=== PATIENT | male | born 1955 | race Caucasian/White ===

== ENCOUNTER → 2019-06-04 15:27 | Outpatient (CLI) | payer OTHER, SELFPAY ==
--- NOTE | 2019-06-04 | XR_ITS ---
PROCEDURE: XR KNEE LT 3V CLINICAL INDICATION: Left knee pain COMPARISON: No exams were available for comparison FINDINGS: No fracture or dislocation. No lytic or blastic change. There is normal mineralization. The joint spaces are well-preserved. No significant degenerative/arthritic changes. No erosive changes evident. Other findings:None. IMPRESSION: No acute findings. Dictated by: Gaurang Zavala MD 06/04/2019 15:58 Electronically signed by Gaurang Zavala MD in [place] 06/04/2019 15:58
--- NOTE | 2019-06-04 | XR_ITS ---
PROCEDURE: XR KNEE RT 3V CLINICAL INDICATION: Right knee pain COMPARISON: No exams were available for comparison FINDINGS: No fracture or dislocation. No lytic or blastic change. There is normal mineralization. The joint spaces are well-preserved. No significant degenerative/arthritic changes. No erosive changes evident. Other findings:None. IMPRESSION: No acute findings. Dictated by: Gaurang Zavala MD 06/04/2019 15:57 Electronically signed by Gaurang Zavala MD in [place] 06/04/2019 15:57
== END ==
PROVIDERS: PCP Family Medicine; Visit Provider Family Medicine
DX: M17.12 Unilateral primary osteoarthritis, left knee (principal); M17.11 Unilateral primary osteoarthritis, right knee
CPT/HCPCS: 73562

== ENCOUNTER 2020-02-11 11:14 | Emergency (ER) | payer OTHER, SELFPAY ==
[2020-02-11 11:35] VITALS: BP 125/83; PULSE 75; RESP 19; TEMP 36.6; O2SAT 99; BMI 27.0
--- NOTE | 2020-02-11 12:10 | HMH.EDUTC ---
[facility] [place] Disposition Clinical Impression: Exposure to COVID-19 virus Disposition: Home, Self-Care Condition on Discharge: Good Instructions: DI for COVID-19 (Suspected or Confirmed ), Coronavirus Disease 2019, Preventing the Spread of Coronavirus Discharge Instructions, DI for Nausea -- Adult, Diarrhea Additional Instructions: *Monitor Temp, Over the counter Motrin or Tylenol as directed/as needed Tylenol every 4 hours and Motrin every 6 hours (as long as your family doctor has told you that you can take it) for fever or pain. and straight to ER if unable to lower temp less than 101.0 after medication given *Warm salt water gargles may help to soothe the throat *Throat Lozenges *Warm fluids like tea with honey may help to soothe the throat *Sleep elevated *Humidifier/Vaporizer Follow up IMMEDIATELY for new or worsening symptoms or no Noticeable improvement over the next 48-72 hours. 911 for difficulty breathing or swallowing You were tested for today for COVID19 your test result should be back in the next 24-48 hours, you may call to the [facility] to see if your test results are back in the next 48 hours [phone] [facility] hours are 9am-9pm You was given a handout with instructions for Self Quarantine and Self isolation for while you wait on test results and what to do if they are positive If you are positive the Health Dept will be contacting you also Prescriptions: Ondansetron [Zofran 4mg ODT] 4 mg PO TIDP PRN #12 tab PRN Reason: Nausea Transmission Status: Pending to [facility] Referrals: Tony Reich [Primary Care Provider] - As needed Forms: Work/School Release Time of Disposition: 12:14 Medical Decision Making - David Inquiry Pt receiving controlled substance: No David was queried for this patient: No Vital Signs: 02/11/20 11:35 Temperature 97.8 F Temperature Source Oral Pulse Rate [Right Brachial] 75 Respiratory Rate 19 Blood Pressure [Right Arm] 125/83 Blood Pressure Mean [Right Arm] 97 Blood Pressure Source [Right Arm] Automatic Cuff Blood Pressure Position [Right Arm] Sitting 02 Sat by Pulse Oximetry 99 Oxygen Delivery Method Room Air Orders (Tests/Meds): ORDERS Category Date Time Status Covid-19 Nasal PCR ([facility]) Routine Lab 02/11/20 11:17 Ordered [facility] [place] HPI - General Stated complaint: covid test, exposure Time Seen by Provider: 02/11/20 12:10 Mode of Arrival: Ambulatory Source of Information: Patient Limitations: No Limitations Description of Symptoms (Recalled from Triage Doc. by RN): COVID TEST D/T EXPOSURE; C/O HEADACHE, DIARRHEA, ABDOMINAL DISCOMFORT HEENT Symptoms (Recalled from RN notes): No Resp Symptoms (Recalled from RN notes): No Skin Symptoms (Recalled from RN notes): No MS Symptoms (Recalled from RN notes): No Functional Status (Recalled from RN notes): WNL - History of Present Illness Provider Complaint: Patient state that tested positive for COVID over the weekend States that now he has been having upset stomach, nausea and diarrhea along with nasal congestion and headache States that he came in to get tested due to close exposure - Related Data Previous Rx's Medication Instructions Recorded Ondansetron [Zofran 4mg ODT] 4 mg PO TIDP PRN #12 tab 02/11/20 Allergies Allergy/AdvReac Type Severity Reaction Status Date / Time No Known Allergies Allergy Verified 02/11/20 12:10 - Worker's Comp Is this a Worker's Comp case?: No [facility] History - Hepatitis A Screen Drug use history?: No High risk sexual behaviors?: No History of sexually transmitted infection?: No Currently employed?: No Childcare worker?: No Do you have indoor plumbing?: Yes Do you have electricity?: Yes Attestation statement:: This patient has been screened for Hepatitis A risk factors. I have reviewed the patient's past medical history: Yes Laterality Cases: Bilateral: Tonsillectomy - Social History Alcohol Intake: never Occupational Status: other
[2020-02-11 12:18] VITALS: BP 125/83; PULSE 75; RESP 19; TEMP 36.6; O2SAT 99
== END 2020-02-11 12:20 | disposition home or self-care (01) ==
PROVIDERS: Emergency Provider Nurse Practitioner; PCP Family Medicine
DX: Z20.822 Contact with and (suspected) exposure to COVID-19 (principal); R11.0 Nausea; R51.9 Headache, unspecified
CPT/HCPCS: 99202; G0463; U0003

== ENCOUNTER → 2020-04-28 10:53 | Outpatient (CLI) | payer OTHER, SELFPAY ==
--- NOTE | 2020-04-28 10:57 | XR_ITS ---
PROCEDURE: XR FOOT WT BEARING RT 3V CLINICAL INDICATION: pain COMPARISON: No exams were available for comparison FINDINGS: No fracture or dislocation. No lytic or blastic change. There is normal mineralization. The joint spaces are well-preserved. No significant degenerative/arthritic changes. No erosive changes evident. Other findings:None. IMPRESSION: No acute findings. Dictated by: Gaurang Zavala MD 04/28/2020 13:49 Gaurang Zavala MD in [place] 04/28/2020 13:49
--- NOTE | 2020-04-28 10:57 | XR_ITS ---
PROCEDURE: XR FOOT WT BEARING LT 3V CLINICAL INDICATION: pain Left foot pain COMPARISON: No exams were available for comparison FINDINGS: No fracture or dislocation. No lytic or blastic change. There is normal mineralization. The joint spaces are well-preserved. No significant degenerative/arthritic changes. No erosive changes evident. Other findings:None. IMPRESSION: No acute findings. Dictated by: Gaurang Zavala MD 04/28/2020 13:49 Gaurang Zavala MD in [place] 04/28/2020 13:49
== END ==
PROVIDERS: PCP Family Medicine; Visit Provider Nurse Practitioner
DX: M79.672 Pain in left foot (principal); M79.671 Pain in right foot
CPT/HCPCS: 73630

== ENCOUNTER → 2020-12-24 08:03 | Outpatient (CLI) | payer OTHER, SELFPAY | PROVIDERS: PCP Family Medicine; Visit Provider Nurse Practitioner | DX: Z20.822 Contact with and (suspected) exposure to COVID-19 (principal) | CPT/HCPCS: C9803; U0003; U0005 ==

== ENCOUNTER 2022-07-05 22:08 | Emergency (ER) | payer MEDICARE, OTHER, SELFPAY ==
[2022-07-05 22:10] VITALS: BP 173/84; PULSE 101; RESP 21; TEMP 37; O2SAT 93; BMI 27.0
[2022-07-05 22:18] VITALS: BMI 27.0
--- NOTE | 2022-07-05 22:20 | CT_ITS ---
PROCEDURE INFORMATION: Exam: CTA Chest With Contrast Exam date and time: 07/05/2022 11:11 PM Age: 66 years old Clinical indication: Cough and dyspnea; Additional info: SOA TECHNIQUE: Imaging protocol: Computed tomographic angiography of the chest with contrast. Exam focused on the arteries. 3D rendering (Not supervised by radiologist): MIP and/or 3D reconstructed images were created by the technologist. Radiation optimization: All CT scans at this facility use at least one of these dose optimization techniques: automated exposure control; mA and/or kV adjustment per patient size (includes targeted exams where dose is matched to clinical indication); or iterative reconstruction. Contrast material: ISOVUE; Contrast volume: 70 ml; Contrast route: INTRAVENOUS (IV); REPORTING DATA: Count of CT and Cardiac NM exams in prior 12 months: This patient has received 0 known CTs and 0 known cardiac nuclear medicine studies in the 12 months prior to the current study. COMPARISON: CR XR CHEST 2V 07/05/2022 11:07 PM FINDINGS: Pulmonary arteries: No large central pulmonary emboli were identified. Assessment of the small peripheral branches at multiple levels was nondiagnostic due to gross respiratory motion. Aorta: Mild aortic ectasia/tortuosity and calcific atherosclerosis. No aortic aneurysm or dissection. No mediastinal hematoma. Thyroid: The visualized thyroid gland demonstrates no gross abnormality. Lungs: Granulomatous calcifications in the right lung and perihilar distribution. Question mild bilateral bronchial wall thickening suspicious for a mild element of bronchitis or bronchial edema, with no evidence of bronchiectasis or bronchial occlusions. Question mild peripheral reticulonodular densities in the anterior left upper lobe without focal consolidation, with assessment limited by respiratory motion in the region. This could represent early/mild atypical pneumonia or could represent chronic changes of atypical infection and small airways disease. Minimal paraseptal emphysematous changes in the pulmonary apices bilaterally. 4 mm pulmonary nodule in the anterior right middle lobe series 5, image 76 without measurable calcification. For patients at low risk (minimal or absent history of smoking and of other known risk factors), no routine follow-up is indicated. For patients at high risk (history of smoking or of other known risk factors), consider optional CT at 12 months. (Harinder et al., Fleischner Society, 2017). Granulomatous calcification in the spleen. Pleural spaces: No pleural effusion. No pneumothorax. Heart: Heart size normal. No coronary artery calcification. No pericardial effusion. Mediastinal space: The esophagus is largely contracted but demonstrates no gross abnormality. Lymph nodes: No supraclavicular or axillary adenopathy. Enlarged mediastinal nodes in the pretracheal retrocaval and prevascular distributions and borderline enlarged bilateral hilar nodes, nonspecific. Liver: Low-density circumscribed probable cysts in the liver which do not require further evaluation based on current consensus criteria. Bones/joints: No acute osseous abnormalities are identified. Mild thoracic spondylosis. Soft tissues: The soft tissues of the chest wall demonstrate no acute abnormality. IMPRESSION: 1. No large central pulmonary emboli. Assessment of the small peripheral branch vessels was nondiagnostic due to gross respiratory motion. 2. Question mild bilateral bronchial wall thickening suggesting mild bronchitis or bronchial edema. 3. Reticulonodular densities in the anterior left upper lobe could represent early/mild changes of atypic
--- NOTE | 2022-07-05 22:20 | XR_ITS ---
PROCEDURE INFORMATION: Exam: XR Chest Exam date and time: 07/05/2022 11:07 PM Age: 66 years old Clinical indication: Cough and dyspnea; Additional info: SOA congestion TECHNIQUE: Imaging protocol: Radiologic exam of the chest. Views: 2 views. COMPARISON: No relevant prior studies available. FINDINGS: Lungs: Moderate hyperexpansion and hyperlucency with diaphragmatic flattening suggesting COPD. Pulmonary vasculature grossly normal. Question mild central peribronchial thickening suspicious for mild changes of bronchitis/bronchiolitis. No gross pulmonary infiltrates or edema pattern. Granulomatous calcifications in the right perihilar region and anterior right base. Pleural spaces: No pleural effusion. No pneumothorax. Heart/Mediastinum: Heart size normal. No tracheal/mediastinal shift. Bones/joints: No acute osseous abnormalities are identified. IMPRESSION: 1. Question mild changes of bronchitis. No gross pulmonary infiltrates. 2. Evidence of COPD/emphysema.
--- NOTE | 2022-07-05 22:24 | ECG_ITS ---
APPROVED REPORT Exam: Resting ECG HR:92 bpm ECG Measurements Heart Rate 92 AXES WY 144 P 67 QRSd 117 QRS 60 QT 337 T 49 QTc 386 Conclusion SINUS RHYTHM MODERATE INTRAVENTRICULAR CONDUCTION DELAY [110+ ms QRS DURATION] BORDERLINE ECG UNCONFIRMED REPORT Electronically signed by : George Patel MD 07/06/2022 17:29:11
[2022-07-05 22:30] VITALS: BP 149/73; PULSE 82; RESP 18; O2SAT 98
[2022-07-05 22:30] LABS: Coronavirus 19, PCR Not Detected (NotDetected); Influenza A, PCR Not Detected (NotDetected); Influenza B, PCR Not Detected (NotDetected)
[2022-07-05 22:32] LABS: Basophils # 0.1 K/mm3 (0-0.2); Basophils % 0.4 % (0.1-2.0); Eosinophils # 0.3 K/mm3 (0.0-0.4); Eosinophils % 1.7 % (0.1-12.0); Hematocrit 47.2 % (42.0-52.0); Hemoglobin 15.3 g/dL (14.1-18.0); Lymphocytes # 2.3 K/mm3 (0.7-4.5); Lymphocytes % 15.9 % (10-50); Mean Corpuscular HGB Conc 32.4 g/dL (31.8-35.4); Mean Corpuscular Hemoglobin 28.1 pg (27.0-31.2); Mean Corpuscular Volume 86.7 fl (80-94); Mean Platelet Volume 7.9 fl (7.4-10.4); Monocytes # 1.1 K/mm3 (0.1-1.0); Monocytes % 7.6 % (1.7-9.3); Neutrophils # 10.7 K/mm3 (1.8-7.8); Neutrophils % 74.4 % (37.0-80.0); Platelet Count 360 K/mm3 (142-424); Red Blood Count 5.44 M/mm3 (4.60-6.20); Red Cell Distribution Width 14.6 % (11.5-17.5); White Blood Count 14.4 K/mm3 (4.8-10.8)
[2022-07-05 22:39] LABS: Alanine Aminotransferase 32 U/L (12-78); Albumin Level 4.5 g/dl (3.5-5.0); Albumin/Globulin Ratio 1.2 (1.1-1.8); Alkaline Phosphatase 101 U/L (38-126); Anion Gap 19.2 mEq/L (5-15); Aspartate Amino Transferase 32 U/L (17-59); Bilirubin,Total 0.8 mg/dl (0.2-1.3); Blood Urea Nitrogen 17 mg/dl (9-20); Calcium 8.9 mg/dl (8.4-10.2); Carbon Dioxide 26 mmol/L (22.0-30.0); Chloride 98 mmol/L (98-107); Creatinine Clearance Estimated 97 mL/min (50-200); Estimated Glomerular Filt Rate 75 ml/min (>60); GFR (African American) 91 ML/MIN (>60); Globulin 3.7 g/dL (1.3-3.2); Glucose 110 mg/dl (74-100); Potassium 4.2 mmoL/L (3.5-5.1); Sodium 139 mmol/L (136-145); Total Protein,Serum 8.2 g/dl (6.3-8.2)
[2022-07-05 22:40] VITALS: PULSE 93; PULSE 95
[2022-07-05 22:58] LABS: Procalcitonin 0.086 ng/mL (0.0-2.0); Troponin I < 0.01 ng/ml (0.00-0.034)
[2022-07-05 22:59] LABS: Lactic Acid 0.8 mmol/L (0.7-2.1)
[2022-07-05 23:00] VITALS: BP 140/80; PULSE 94; RESP 20; O2SAT 96
[2022-07-05 23:17] LABS: Erythrocyte Sedimentation Rate 23 mm/hr (0-20)
--- NOTE | 2022-07-05 23:49 | HMH.EDSOB ---
Discharge Plan Disposition Patient Disposition: Home, Self-Care Prescriptions Prescriptions: New prednisone [prednisone] 20 mg tablet 20 mg PO BID Qty: 10 0RF benzonatate 100 mg Capsule 100 mg PO Q8H Qty: 14 0RF levofloxacin 500 mg tablet 500 mg PO DAILY Qty: 7 0RF No Action omeprazole 40 mg capsule,delayed release(DR/EC) 40 mg PO DAILY Referrals Follow up/Referrals: Tony Reich [Primary Care Provider] - See instructions Wesly Krishnan MD [Physician] - See instructions Clinical Impressions Clinical Impression: Acute exacerbation of chronic obstructive airways disease, Bronchitis Stand Alone Forms Stand Alone Forms: Work/School Release Instructions Patient Instructions: DI for Chronic Obstructive Pulmonary Disease Discharge ED Provider: Marsha (ED)Angel Resp/SOB HPI General Chief Complaint: Shortness of Breath/Dyspnea Stated Complaint: congestion,cough,chills,SOB Time Seen by Provider: 07/05/22 23:49 Mode of Arrival: Ambulatory Source of Information: Patient and Medical Record Limitations: No Limitations Description of Symptoms (Recalled from ER Triage Doc. by RN): pt c/o fever, congestion,body aches,cough, SOA since tuesday History of Present Illness over the last few days has cough and achey with fever - has hx of copd - no inhalers Complaint: shortness of breath and cough Onset (ago): day(s) Context: recent illness Severity: moderate Known history of: COPD Treatment prior to arrival: none Related Data Home oxygen amount: none Home Medications Medication Instructions Recorded Confirmed omeprazole 40 mg capsule,delayed 40 mg PO DAILY gerd 04/28/20 07/05/22 release Previous Rx's Medication Instructions Recorded benzonatate 100 mg capsule 100 mg PO Q8H #14 caps 07/06/22 levofloxacin 500 mg tablet 500 mg PO DAILY #7 tabs 07/06/22 prednisone 20 mg tablet 20 mg PO BID #10 tabs 07/06/22 Allergies Allergy/AdvReac Type Severity Reaction Status Date / Time No Known Allergies Allergy Verified 04/28/20 13:03 Well's Criteria PE Score Clinical signs/symptoms of DVT: No PE is #1 diagnosis or equally likely: Yes Heart rate is > 100: Yes Immobile at least 3 days, or surgery in past 4 wks: No Previously, obj. diagnosed PE or DVT: No Hemoptysis: No Malignancy w/Rx within 6mo, or palliative: No PE Score: 4 Risk of Pulmonary Embolism by score: >3 pts=Hi Risk (78%) [facility] Disclaimer: The information contained in this section may have been updated after the patient was seen, as this information can be updated by other users. Social History Smoking Status: Current every day smoker alcohol intake: never current occupational status: employed Travel in the last 8 weeks: None ROS Obtained: Yes All systems reviewed & no additional complaints except as documented Physical Exam General General appearance: alert Head Head exam: normocephalic Eye Eye exam: Present PERRL and EOMI ENT ENT exam: Present mucous membranes moist Neck Neck exam: Present trachea midline Respiratory Respiratory exam: Present wheezes; Absent respiratory distress Cardiovascular Cardiovascular exam: Present tachycardia and systolic murmur; Absent rubs Abdominal Exam Abdominal exam: Present soft Extremities Exam Extremities exam: Present full ROM; Absent calf tenderness Neurological Exam Neurological exam: Present alert, oriented X3 and CN II-XII intact; Absent motor sensory deficit Psychiatric Psychiatric exam: Present normal affect Skin Skin exam: Absent rash Medical Decision Making Medical Records Medical records reviewed: Yes I reviewed the patient's medical records. David Inquiry Pt receiving controlled substance: No Vital Signs: 07/05/22 22:10 07/05/22 22:40 07/05/22 22:40 Temperature 98.6 F Temperature Source Oral Pulse Rate 95 H 93 H Pulse Rate [Right] 101 H Respiratory Rate 21 Blood Pressure Blood Pressure [Right Arm] 173/84 H
[2022-07-06 00:07] VITALS: BP 137/81; PULSE 91; RESP 18; TEMP 37; O2SAT 96
[2022-07-06 00:10] LABS: NT Pro Brain Natriuretic Pep. 398 pg/mL (0-125)
== END 2022-07-06 00:30 | disposition home or self-care (01) ==
PROVIDERS: Emergency Provider Emergency Medicine; PCP Family Medicine
DX: J44.1 Chronic obstructive pulmonary disease with (acute) exacerbation (principal); J40 Bronchitis, not specified as acute or chronic; F17.200 Nicotine dependence, unspecified, uncomplicated
CPT/HCPCS: 71046; 71275; 80053; 83605; 83880; 84145; 84484; 85025; 85651; 86140; 87040; 87635; 87636; 93005; 96361; 96374; 96375; 99285; C9803; J0456; J0696; Q9967; U0003; U0005

== ENCOUNTER 2024-02-05 09:43 | Emergency (ER) | payer MEDICARE, OTHER, SELFPAY ==
[2024-02-05 09:45] VITALS: BP 122/75; PULSE 89; RESP 20; TEMP 36.5; O2SAT 96; BMI 26.4
[2024-02-05 09:56] LABS: Coronavirus 19, PCR Not Detected (NotDetected); Influenza B, PCR Not Detected (NotDetected)
[2024-02-05 10:00] VITALS: BP 112/75; PULSE 86; O2SAT 94
[2024-02-05 10:18] LABS: Influenza A, PCR Detected (NotDetected)
[2024-02-05 10:30] VITALS: BP 120/75; PULSE 83; O2SAT 100
--- NOTE | 2024-02-05 10:50 | XR_ITS ---
PROCEDURE INFORMATION: Exam: XR Chest Exam date and time: 02/05/2024 10:56 AM Age: 68 years old Clinical indication: Dyspnea TECHNIQUE: Imaging protocol: Radiologic exam of the chest. Views: 1 view. COMPARISON: CT ANGIO CHEST PE PROTOCOL 07/05/2022 11:11 PM FINDINGS: Lungs: Unremarkable. No consolidation. Pleural spaces: Unremarkable. No pleural effusion. No pneumothorax. Heart/Mediastinum: Unremarkable. No cardiomegaly. Bones/joints: No acute bony abnormalities detected. IMPRESSION: Negative chest exam.
[2024-02-05] MEDS: 0.9 % SODIUM CHLORIDE 1000ML 1,000 ML 999 ML IV (10:59)
--- NOTE | 2024-02-05 10:59 | ECG_ITS ---
APPROVED REPORT Exam: Resting ECG HR:78 bpm ECG Measurements Heart Rate 78 AXES LA 146 P 66 QRSd 101 QRS -18 QT 333 T 49 QTc 367 Conclusion SINUS RHYTHM INDETERMINATE AXIS PATTERN CONSISTENT WITH PULMONARY DISEASE ABNORMAL ECG UNCONFIRMED REPORT Electronically signed by : Neeraj Maher, 02/05/2024 15:26:04
--- NOTE | 2024-02-05 11:00 | ED_ITS ---
Discharge Plan Disposition Patient Disposition: Home, Self-Care Prescriptions Prescriptions: No Action omeprazole 40 mg capsule,delayed release(DR/EC) 40 mg PO DAILY peg 3350-electrolytes [GaviLyte-G] 236-22.74-6.74 -5.86 gram recon soln 240 ml PO Q10M Qty: 4000 0RF Rx Instructions: follow mailed instructions prednisone [prednisone] 20 mg tablet 20 mg PO BID Qty: 10 0RF benzonatate 100 mg Capsule 100 mg PO Q8H Qty: 14 0RF levofloxacin 500 mg tablet 500 mg PO DAILY Qty: 7 0RF Referrals Follow up/Referrals: Tony Reich [Primary Care Provider] - See instructions Activity Restrictions/Add. Instructions Additional Instructions/Restrictions: You have influenza A but your symptoms have been going on for greater than 48 hours and antiviral medications will have no effect in this particular situation. Continue to take Tylenol and push aggressive oral fluids such as Gatorade or Powerade until your urine is clear. As discussed you have a mild acute kidney injury on admission was offered but please follow-up closely with your primary care doctor within the next 1 days to have your kidney function rechecked and return with any significant worsening of your symptoms. Clinical Impressions Clinical Impression: Influenza A, Generalized weakness, JORDAN (acute kidney injury), Dehydration, moderate Print Language Print Language: Divehi Discharge ED Provider: Prosper Maher General Adult HPI General Chief complaint: Upper Respiratory Infection Stated complaint: BA diarrhea lower back pain garcia cough Time Seen by Provider: 02/05/24 10:44 Mode of Arrival: Ambulatory Source of Information: Patient Limitations: No Limitations Description of Symptoms (Recalled from ER Triage Doc. by RN): body aches since along with diarrhea, pt states he is weak and tired with no little to no appetite and just feels like hes been hit by a ton of bricks History of Present Illness HPI narrative: Patient is a 68-year-old male with a history of COPD presents today with 3 days of bodyaches cough diarrhea and profound and severe generalized weakness. Has had decreased p.o. intake from a food standpoint but has been drinking water. States that he cannot lay back because of the spasms associated with this. Also states that he is so weak that he can barely walk and had a hard time even driving to the hospital today. Symptoms began over 72 hours ago. Related Data Home Medications ?Medication ?Instructions ?Recorded ?Confirmed omeprazole 40 mg capsule,delayed 40 mg PO DAILY gerd 04/28/20 07/05/22 release Previous Rx's ?Medication ?Instructions ?Recorded benzonatate 100 mg capsule 100 mg PO Q8H #14 caps 07/06/22 levofloxacin 500 mg tablet 500 mg PO DAILY #7 tabs 07/06/22 prednisone 20 mg tablet 20 mg PO BID #10 tabs 07/06/22 peg 3350-electrolytes 236 240 ml PO Q10M #4,000 mL 04/20/23 gram-22.74 gram-6.74 gram-5.86 gram solution (GaviLyte-G) Allergies Allergy/AdvReac Type Severity Reaction Status Date / Time No Known Allergies Allergy Verified 04/28/20 13:03 [facility] Disclaimer: The information contained in this section may have been updated after the patient was seen, as this information can be updated by other users. Social History Smoking Status: Current every day smoker alcohol intake: never current occupational status: employed Travel in the last 8 weeks: None Have you lived/traveled outside US in past 30 days?: No Contact w/someone who lives/traveled outside US past 30 days?: No Exposure to someone with infectious disease in past 14 days?: No Do you have a fever (greater than 100.4 F or 38 C)?: No Have you tested positive for COVID-19: No Exposed to someone with COVID-19 in past 14 days?: No Do you have a sore throat?: No Do you have a cough?: Yes Do you have any weakness?: No Do you have any diarrhea?: Yes Are you experiencing any unusual bleeding?: No Do you have any muscle aches/pain?: Yes Do you have any abdominal pain?: No Are you experiencing loss of taste or smell?: No Other Medical History Have you received the Pneumonia Vaccine: Yes ROS Obtained: Yes All systems reviewed & no additional complaints except as documented Physical Exam General General appearance: alert and in no apparent distress Respiratory Respiratory exam: Present normal lung sounds bilaterally; Absent respiratory distress Cardiovascular Cardiovascular exam: Present regular rate and normal rhythm Neurological Exam Neurological exam: Present alert, oriented X3 and other (Nonfocal) Medical Decision Making Medical Records Screening: Per USPSTF and CDC recommendations, given the prevalence of disease in our region, it is our hospital?s policy to screen for HIV and viral Hepatitis for all patients aged 18 and over and those with ongoing risk factors. David Inquiry Pt receiving controlled substance: No Vital Signs: 02/05/24 09:45 02/05/24 10:00 02/05/24 10:30 Temperature 97.7 F Temperature Source Oral Pulse Rate 86 83 Pulse Rate [Right Radial] 89 Respiratory Rate 20 Blood Pressure 112/75 120/75 Blood Pressure [Right Arm] 122/75 Blood Pressure Mean [Right Arm] 90 02 Sat by Pulse Oximetry 96 94 L 100 Oxygen Delivery Method Room Air Room Air Room Air 02/05/24 11:30 02/05/24 12:00 Temperature Temperature Source Pulse Rate 75 73 Pulse Rate [Right Radial] Respiratory Rate Blood Pressure 129/70 113/64 Blood Pressure [Right Arm] Blood Pressure Mean [Right Arm] 02 Sat by Pulse Oximetry 91 L 90 L Oxygen Delivery Method Room Air Lab Data Lab results reviewed: Yes I reviewed the patient's lab results. Lab Results 02/05/24 09:50: SARS-CoV-2 (PCR) Not detected, Influenza A Untype (PCR) Detected A, Influenza Type B (PCR) Not detected 02/05/24 11:05: WBC 5.3, RBC 5.81, Hgb 16.8, Hct 50.4, MCV 86.7, MCH 28.9, MCHC 33.3, RDW 14.6, Plt Count 157, MPV 10.2, Neut % (Auto) 63.3, Lymph % (Auto) 18.4, [place] % (Auto) 16.7 H, Eos % (Auto) 0.6, Baso % (Auto) 0.8, Neut # (Auto) 3.3, Lymph # (Auto) 1.0, [place] # (Auto) 0.9, Eos # (Auto) 0.0, Baso # (Auto) 0.0, Sodium 133 L, Potassium 4.4, Chloride 101, Carbon Dioxide 24, Anion Gap 12.4, B UN 36 H, Creatinine 1.70 H, Estimated Creat Clear 54, Estimated GFR 40 L, Est GFR ( Amer) 49 L, Glucose 88, Calcium 9.0, Total Bilirubin 0.5, AST 53, ALT 39, Alkaline Phosphatase 55, Troponin I < 0.01, NT-Pro-B Natriuret Pep 42.4, Total Protein 7.0, Albumin 4.2, Globulin 2.8, Albumin/Globulin Ratio 1.5 02/05/24 11:05 02/05/24 11:05 Orders (Tests/Meds): ED MEDICATIONS Discontinued Medications Generic Name Dose Route Start Last Admin Trade Name Sade PRN Reason Stop Dose Admin Sodium Chloride 1,000 mls @ 999 mls/hr 02/05/24 11:00 02/05/24 10:59 Sod Chlor 0.9% 1000ml Bag IV 02/05/24 12:00 999 mls/hr .Q1H1M MELANIA Administration Lactated Ringer's 1,000 mls @ 999 mls/hr 02/05/24 11:00 Lactated Ringer's 1000 Ml Bag IV 02/05/24 12:00 .Q1H1M MELANIA Ketorolac Tromethamine 15 mg 02/05/24 11:42 02/05/24 11:43 Ketorolac 30mg/Ml Vial IV 02/05/24 11:43 15 mg ONCE ONE Administration ORDERS Category Date Time Status CXR --portable [XR chest portable] Stat Exams 02/05/24 10:50 Completed BNP [NT Pro Brain Natriuretic Pep.] Stat Lab 02/05/24 11:05 Completed CBC w/Auto Diff [Complete Blood Count Auto Diff] Stat Lab 02/05/24 11:05 Completed CMP [Comprehensive Metabolic Panel] Stat Lab 02/05/24 11:05 Completed Rapid PCR Covid and Flu A/B Stat Lab 02/05/24 09:50 Completed Trop I [Troponin I] Stat Lab 02/05/24 11:05 Completed Troponin I Q3H Lab 02/05/24 14:00 Ordered Troponin I Q3H Lab 02/05/24 17:00 Ordered Medical Decision Narrative: [id number] with above history and physical who presents today with viral type symptoms. Had a rapid COVID and flu done quickly returned positive for influenza A. However patient has profound generalized weakness. In the setting of underlying COPD and concern for possible electrolyte abnormalities organ dysfunction etc. Will give him IV fluids and Toradol for symptoms and check basic blood work as well as a chest x-ray to make sure there is not a superimposed bacterial infection. I will reassess after this initial workup is complete. He is outside of the window for antiviral medications at the moment. Chest x-ray performed which I personally interpreted shows no acute cardiopulmonary abnormality Labs performed which are consistent with acute kidney injury with a creatinine 1.7 from a baseline of 1.0. Patient was given IV fluids and a significantly improved clinically. I offered him admission for IV fluids and observation however he wants to go home and follow-up closely with his primary care doctor have his kidney function rechecked. Supportive care discussed return precautions emphasized and patient was discharged in a stable and improved condition. Critical Care Critical Care Time Critical Care Time: No
[2024-02-05 11:20] LABS: Basophils % 0.8 % (0.1-2.0); Eosinophils % 0.6 % (0.1-12.0); Hematocrit 50.4 % (42.0-52.0); Hemoglobin 16.8 g/dL (14.1-18.0); Lymphocytes % 18.4 % (10-50); Mean Corpuscular HGB Conc 33.3 g/dL (31.8-35.4); Mean Corpuscular Hemoglobin 28.9 pg (27.0-31.2); Mean Corpuscular Volume 86.7 fl (80-94); Mean Platelet Volume 10.2 fl (7.4-10.4); Monocytes # 0.9 K/mm3 (0.1-1.0); Monocytes % 16.7 % (1.7-9.3); Neutrophils # 3.3 K/mm3 (1.8-7.8); Neutrophils % 63.3 % (37.0-80.0); Platelet Count 157 K/mm3 (142-424); Red Blood Count 5.81 M/mm3 (4.60-6.20); Red Cell Distribution Width 14.6 % (11.5-17.5); White Blood Count 5.3 K/mm3 (4.8-10.8)
[2024-02-05 11:28] LABS: Albumin Level 4.2 g/dl (3.5-5.0); Chloride 101 mmol/L (98-107); Potassium 4.4 mmoL/L (3.5-5.1); Sodium 133 mmol/L (136-145)
[2024-02-05 11:30] VITALS: BP 129/70; PULSE 75; O2SAT 91
[2024-02-05 11:30] LABS: Blood Urea Nitrogen 36 mg/dl (9-20); Creatinine Clearance Estimated 54 mL/min (50-200); Estimated Glomerular Filt Rate 40 ml/min (>60); GFR (African American) 49 ML/MIN (>60)
[2024-02-05 11:31] LABS: Alanine Aminotransferase 39 U/L (12-78); Albumin/Globulin Ratio 1.5 (1.1-1.8); Alkaline Phosphatase 55 U/L (38-126); Anion Gap 12.4 mEq/L (5-15); Aspartate Amino Transferase 53 U/L (17-59); Bilirubin,Total 0.5 mg/dl (0.2-1.3); Carbon Dioxide 24 mmol/L (22.0-30.0); Globulin 2.8 g/dL (1.3-3.2); Glucose 88 mg/dl (74-100)
[2024-02-05 11:43] LABS: NT Pro Brain Natriuretic Pep. 42.4 pg/mL (0-125)
[2024-02-05] MEDS: KETOROLAC 30MG/ML VIAL 15 MG IV (11:43)
[2024-02-05 11:47] LABS: Troponin I < 0.01 ng/ml (0.00-0.034)
[2024-02-05 12:00] VITALS: BP 113/64; PULSE 73; O2SAT 90
[2024-02-05 12:28] VITALS: BP 113/64; PULSE 70; RESP 20; TEMP 36.7; O2SAT 98
== END 2024-02-05 12:29 | disposition home or self-care (01) ==
PROVIDERS: Emergency Provider Student in an Organized Health Care Education/Training Program; PCP Family Medicine
DX: E86.0 Dehydration (principal); N17.9 Acute kidney failure, unspecified; J10.1 Influenza due to other identified influenza virus with other respiratory manifestations; M79.10 Myalgia, unspecified site; R05.9 Cough, unspecified; R19.7 Diarrhea, unspecified; R53.1 Weakness; R63.8 Other symptoms and signs concerning food and fluid intake; M54.50 Low back pain, unspecified; R51.9 Headache, unspecified
CPT/HCPCS: 71045; 80053; 83880; 84484; 85025; 87636; 93005; 96361; 96374; 99284; J1885; J7030

== ENCOUNTER 2024-11-13 15:40 | Emergency (ER) | payer MEDICARE, OTHER, SELFPAY ==
[2024-11-13 15:48] VITALS: BP 167/93; PULSE 78; RESP 18; TEMP 36.6; O2SAT 96; BMI 26.4
--- NOTE | 2024-11-13 15:48 | XR_ITS ---
FINAL REPORT CLINICAL HISTORY: short of breath COMPARISON: 02/05/2024 FINDINGS: A portable view of the chest was obtained. Cardiac and mediastinal silhouettes are within normal limits. There is evidence of prior granulomatous disease. The lungs are otherwise clear. There is no pleural effusion or pneumothorax. IMPRESSION: No acute process on this portable exam. Reviewed, Interpreted and Dictated by Mayda Covarrubias MD Transcribed by Jerri Segal Authenticated and [facility]
[2024-11-13 15:52] VITALS: PULSE 76
[2024-11-13 15:58] LABS: Hematocrit 47.5 % (42.0-52.0); Hemoglobin 15.8 g/dL (14.1-18.0); Immature Granulocytes % 0.2 %; Mean Corpuscular HGB Conc 33.3 g/dL (31.8-35.4); Mean Corpuscular Hemoglobin 29.5 pg (27.0-31.2); Mean Corpuscular Volume 88.8 fl (80-94); Nucleated Red Blood Cells % 0 %; Platelet Count 295 K/mm3 (142-424); Red Blood Count 5.35 M/mm3 (4.60-6.20); Red Cell Distribution Width-SD 45.3 fL; White Blood Count 9.6 K/mm3 (4.8-10.8)
[2024-11-13] MEDS: FAMOTIDINE 20MG/2ML VIAL 20 MG IV (16:01)
[2024-11-13] MEDS: ONDANSETRON 4MG/2ML VIAL 4 MG IV (16:01)
[2024-11-13] MEDS: MORPHINE 4MG/ML SYRINGE 4 MG IV (16:01)
[2024-11-13] MEDS: ASPIRIN 325MG TABLET 325 MG PO (16:01)
--- NOTE | 2024-11-13 16:04 | ED_ITS ---
<Statement entered by Daren Tejeda MD - 11/14/24 02:44> I was consulted by the DENISE, and we discussed the complexity of the problems being addressed. I approve the treatment and management plan for this patient's care in the emergency department, thus performing a substantive portion of the medical decision making. Daren Tejeda MD Discharge Plan Disposition Patient Disposition: Home, Self-Care Prescriptions Prescriptions: New prednisone 20 mg tablet 20 mg PO BID 7 Days Qty: 14 0RF ketorolac 10 mg tablet 10 mg PO Q8H 5 Days Qty: 15 0RF No Action omeprazole 40 mg capsule,delayed release(DR/EC) 40 mg PO DAILY peg 3350-electrolytes [GaviLyte-G] 236-22.74-6.74 -5.86 gram recon soln 240 ml PO Q10M Qty: 4000 0RF Rx Instructions: follow mailed instructions prednisone [prednisone] 20 mg tablet 20 mg PO BID Qty: 10 0RF benzonatate 100 mg Capsule 100 mg PO Q8H Qty: 14 0RF levofloxacin 500 mg tablet 500 mg PO DAILY Qty: 7 0RF Referrals Follow up/Referrals: Tnoy Reich [Primary Care Provider, Medical] - See instructions Nigel Godoy MD [Staff Physician, Cardiology] - See instructions Activity Restrictions/Add. Instructions Additional Instructions/Restrictions: Please follow with cardiology for further testing and management of chest pain. Clinical Impressions Clinical Impression: Chest pain, Arm pain Instructions Patient Instructions: DI for Arm Pain, DI for Chest Pain Print Language Print Language: Moroccan Discharge ED Provider: Daren Tejeda HPI <Olivia Mcnulty (ED), MEDICAL TRANSPORT SPECIALIST - Last Filed: 11/14/24 11:29> General Chief Complaint: Chest Pain Stated Complaint: Chest pain Time Seen by Provider: 11/13/24 15:47 Mode of Arrival: Ambulatory Source of Information: Patient Description of Symptoms (Recalled from ER Triage Doc. by RN): Pt presents with consistant chest pain for the last 4 days. Pt states the pain got significantly worse this afternoon and radiated into his left arm. Pt states he does not have his full kidney puller strength. History of Present Illness HPI narrative: 69-year-old male presents to the ED today for complaint of chest pain for the last 4 days. He has pain and numbness going down left arm. States that he has no shortness of breath he has had nausea but no vomiting. Pain is 4-5 out of 10. Related Data Home Medications ?Medication ?Instructions ?Recorded ?Confirmed omeprazole 40 mg capsule,delayed 40 mg PO DAILY gerd 0 04/28/20 07/05/22 release Previous Rx's ?Medication ?Instructions ?Recorded benzonatate 100 mg capsule 100 mg PO Q8H #14 caps 06/09 levofloxacin 500 mg tablet 500 mg PO DAILY #7 tabs prednisone 20 mg tablet 20 mg PO BID #10 tabs peg 3350-electrolytes 236 240 ml PO Q10M #4,000 mL gram-22.74 gram-6.74 gram-5.86 gram solution (GaviLyte-G) ketorolac 10 mg tablet 10 mg PO Q8H 5 days #15 tabs 11/13/24 prednisone 20 mg tablet 20 mg PO BID 7 days #14 tabs 11/13/24 Allergies Allergy/AdvReac Type Severity Reaction Status Date / Time No Known Allergies Allergy Verified 04/28/20 13:03 [facility] <Olivia Mcnulty (ED), MEDICAL TRANSPORT SPECIALIST - Last Filed: 11/14/24 11:29> [facility] Disclaimer: The information contained in this section may have been updated after the patient was seen, as this information can be updated by other users. Social History Smoking Status: Current every day smoker alcohol intake: never current occupational status: employed Travel in the last 8 weeks?: None Have you lived/traveled outside US in past 30 days?: No Contact w/someone who lives/traveled outside US past 30 days?: No Exposure to someone with infectious disease in past 14 days?: No Do you have a fever (greater than 100.4 F or 38 C)?: No Have you tested positive for COVID-19?: No Exposed to someone with COVID-19 in past 14 days?: No Do you have a sore throat?: No Do you have a cough?: No Do you have any weakness?: No Do you have any diarrhea?: No Are you experiencing any unusual bleeding?: No Do you have any muscle aches/pain?: No Do you have any abdominal pain?: No Are you experiencing loss of taste or smell?: No Other Medical History Have you received the Pneumonia Vaccine: Yes <Olivia [place] (ED), MEDICAL TRANSPORT SPECIALIST - Last Filed: 11/14/24 11:29> ROS Obtained: Yes Systems reviewed as appropriate & no additional complaints except as documented Constitutional Constitutional: Reports as per HPI Physical Exam <Olivia Oakeslonnie (ED), MEDICAL TRANSPORT SPECIALIST - Last Filed: 11/14/24 11:29> General General appearance: alert Head Head exam: normocephalic Eye Eye exam: Present PERRL ENT ENT exam: Present mucous membranes moist Neck Neck exam: Present trachea midline Chest Chest inspection: Present symmetric chest wall rise Respiratory Respiratory exam: Present normal lung sounds bilaterally Cardiovascular Cardiovascular exam: Present regular rate, normal rhythm, normal heart sounds, +S1 and +S2 Abdominal Exam Abdominal exam: Present soft and normal bowel sounds Extremities Exam Extremities exam: Present normal inspection, full ROM and normal capillary refill Back Exam Back exam: Present full ROM Neurological Exam Neurological exam: Present alert, oriented X3 and normal gait Psychiatric Psychiatric exam: Present normal affect and normal mood Skin Skin exam: Present warm and dry HEART Score <Olivia Killonnie (ED), MEDICAL TRANSPORT SPECIALIST - Last Filed: 11/14/24 11:29> HEART Score HEART Score assessment performed?: Yes History (anamnesis): Slightly suspicious ECG: Normal Age: >65 years Risk factors: 1-2 risk factors Troponin: </= normal limit HEART Score: 3 <Daren Tejeda MD - Last Filed: 11/13/24 16:26> HEART Score HEART Score: 3 Critical Care <Olivia Champlonnie (ED), MEDICAL TRANSPORT SPECIALIST - Last Filed: 11/14/24 11:29> Critical Care Time Critical Care Time: No Medical Decision Making <[facility] (ED), MEDICAL TRANSPORT SPECIALIST - Last Filed: 11/14/24 11:29> David Inquiry Pt receiving controlled substance: No David was queried for this patient: No Vital Signs Vital Signs: 11/13/24 15:48 11/13/24 15:52 11/13/24 16:31 Temperature 97.9 F Temperature Source Oral Pulse Rate 76 69 Pulse Rate [Right] 78 Respiratory Rate 18 18 Blood Pressure 148/84 H Blood Pressure [Right Arm] 167/93 H Blood Pressure Mean [Right Arm] 117 Blood Pressure Source Blood Pressure Position Blood Pressure Position [Right Arm] Sitting 02 Sat by Pulse Oximetry 96 95 Oxygen Delivery Method Room Air 11/13/24 17:00 11/13/24 17:30 11/13/24 19:05 Temperature 98.1 F Temperature Source Oral Pulse Rate 54 L 60 Pulse Rate [Right] Respiratory Rate 18 19 19 Blood Pressure 148/82 H 145/86 H 145/86 H Blood Pressure [Right Arm] Blood Pressure Mean [Right Arm] Blood Pressure Source Automatic Cuff Blood Pressure Position Supine Blood Pressure Position [Right Arm] 02 Sat by Pulse Oximetry 95 Oxygen Delivery Method Room Air Lab Data Labs: Lab Results 11/13/24 15:43: WBC 9.6, RBC 5.35, Hgb 15.8, Hct 47.5, MCV 88.8, MCH 29.5, MCHC 33.3, RDW 14.0, Plt Count 295, MPV 9.8, Neut % (Auto) 53.3, Lymph % (Auto) 34.3, [place] % (Auto) 7.5, Eos % (Auto) 3.8, Baso % (Auto) 0.9, Neut # (Auto) 5.1, Lymph # (Auto) 3.3, [place] # (Auto) 0.7, Eos # (Auto) 0.4, Baso # (Auto) 0.1, Sodium 139, Potassium 4.6, Chloride 105, Carbon Dioxide 25, Anion Gap 13.6, BUN 17, Creatinine 1.10, Estimated Creat Clear 78, Estimated GFR 67, Est GFR ( Amer) 81, Glucose 98, Calcium 9.0, Magnesium 2.3, Total Bilirubin 0.5, AST 24, ALT 15, Alkaline Phosphatase 69, Troponin I < 0.01, Total Protein 7.1, Albumin 4.5, Globulin 2.6, Albumin/Globulin Ratio 1.7, Lipase 220 11/13/24 18:15: Troponin I < 0.01 11/13/24 15:43 11/13/24 15:43 Response Orders (Tests/Meds): ED MEDICATIONS Discontinued Medications Generic Name Dose Route Start Last Admin Trade Name Freq PRN Reason Stop Dose Admin Aspirin 325 mg 11/13/24 15:47 11/13/24 16:01 Aspirin 325mg Tablet PO 11/13/24 15:48 325 mg ONCE ONE Administration Famotidine 20 mg 11/13/24 15:47 11/13/24 16:01 Famotidine 20mg/2ml Vial IV 11/13/24 15:48 20 mg ONCE ONE Administration Morphine Sulfate 4 mg 11/13/24 15:53 11/13/24 16:01 Morphine 4mg/Ml Syringe IV 11/13/24 15:54 4 mg ONCE ONE Administration Ondansetron HCl 4 mg 11/13/24 15:53 11/13/24 16:01 Ondansetron 4mg/2ml Vial IV 11/13/24 15:54 4 mg ONCE ONE Administration Sodium Chloride 8 ml 11/13/24 15:47 Sodium Chloride 0.9% 10ml Vial IV 12/13/24 15:46 NEEDED PRN dilute pepcid ORDERS Category Date Time Status Chest XR -- portable [XR chest portable] Stat Exams 11/13/24 15:48 Completed CBC [Complete Blood Count Auto Diff] Stat Lab 11/13/24 15:43 Completed Comprehensive Metabolic Panel Stat Lab 11/13/24 15:43 Completed Lipase Stat Lab 11/13/24 15:43 Completed Magnesium Stat Lab 11/13/24 15:43 Completed Trop I [Troponin I] Stat Lab 11/13/24 15:43 Completed Troponin I Q3H Lab 11/13/24 18:15 Completed MDM Narrative Medical Decision Narrative: patient is a 69-year-old male presenting to the emergency department for evaluation of chest pain and numbness going down left arm. Patient is hemodynamically stable and nontoxic-appearing upon arrival, afebrile. Differential diagnosis includes ACS, reflux, nerve impingement, among others. Workup will be conducted with hematologic labs, specific imaging. Initial inventions include crystalloid bolus, analgesics. Initial workup reviewed by me hematologic labs are remarkable for white cell count of 9.6, troponin was 0.01, waiting on second troponin. Other labs have been nonactionable. I have already discussed with patient and I want him to follow-up with cardiology for further imaging and management of his chest pain. He denies any trauma to his neck or shoulder. He does work at [employer]. He says he works 16 to 17-hour days. Patient says he only gets to stay off. He says it makes it hard for him to have appointments. He and I did talk about making appointment to take care of himself. Will discharge patient with cardiology follow-up. <Daren Tejeda MD - Last Filed: 11/13/24 16:26> Vital Signs Vital Signs: 11/13/24 15:48 11/13/24 15:52 11/13/24 16:31 Temperature 97.9 F Temperature Source Oral Pulse Rate 76 69 Pulse Rate [Right] 78 Respiratory Rate 18 18 Blood Pressure 148/84 H Blood Pressure [Right Arm] 167/93 H Blood Pressure Mean [Right Arm] 117 Blood Pressure Source Blood Pressure Position Blood Pressure Position [Right Arm] Sitting 02 Sat by Pulse Oximetry 96 95 Oxygen Delivery Method Room Air 11/13/24 17:00 11/13/24 17:30 11/13/24 19:05 Temperature 98.1 F Temperature Source Oral Pulse Rate 54 L 60 Pulse Rate [Right] Respiratory Rate 18 19 19 Blood Pressure 148/82 H 145/86 H 145/86 H Blood Pressure [Right Arm] Blood Pressure Mean [Right Arm] Blood Pressure Source Automatic Cuff Blood Pressure Position Supine Blood Pressure Position [Right Arm] 02 Sat by Pulse Oximetry 95 Oxygen Delivery Method Room Air Lab Data Labs: Lab Results 11/13/24 15:43: WBC 9.6, RBC 5.35, Hgb 15.8, Hct 47.5, MCV 88.8, MCH 29.5, MCHC 33.3, RDW 14.0, Plt Count 295, MPV 9.8, Neut % (Auto) 53.3, Lymph % (Auto) 34.3, [place] % (Auto) 7.5, Eos % (Auto) 3.8, Baso % (Auto) 0.9, Neut # (Auto) 5.1, Lymph # (Auto) 3.3, [place] # (Auto) 0.7, Eos # (Auto) 0.4, Baso # (Auto) 0.1, Sodium 139, Potassium 4.6, Chloride 105, Carbon Dioxide 25, Anion Gap 13.6, BUN 17, Creatinine 1.10, Estimated Creat Clear 78, Estimated GFR 67, Est GFR ( Amer) 81, Glucose 98, Calcium 9.0, Magnesium 2.3, Total Bilirubin 0.5, AST 24, ALT 15, Alkaline Phosphatase 69, Troponin I < 0.01, Total Protein 7.1, Albumin 4.5, Globulin 2.6, Albumin/Globulin Ratio 1.7, Lipase 220 11/13/24 18:15: Troponin I < 0.01 Response Orders (Tests/Meds): ED MEDICATIONS Discontinued Medications Generic Name Dose Route Start Last Admin Trade Name Sade PRN Reason Stop Dose Admin Aspirin 325 mg 11/13/24 15:47 11/13/24 16:01 Aspirin 325mg Tablet PO 11/13/24 15:48 325 mg ONCE ONE Administration Famotidine 20 mg 11/13/24 15:47 11/13/24 16:01 Famotidine 20mg/2ml Vial IV 11/13/24 15:48 20 mg ONCE ONE Administration Morphine Sulfate 4 mg 11/13/24 15:53 11/13/24 16:01 Morphine 4mg/Ml Syringe IV 11/13/24 15:54 4 mg ONCE ONE Administration Ondansetron HCl 4 mg 11/13/24 15:53 11/13/24 16:01 Ondansetron 4mg/2ml Vial IV 11/13/24 15:54 4 mg ONCE ONE Administration Sodium Chloride 8 ml 11/13/24 15:47 Sodium Chloride 0.9% 10ml Vial IV 12/13/24 15:46 NEEDED PRN dilute pepcid ORDERS Category Date Time Status Chest XR -- portable [XR chest portable] Stat Exams 11/13/24 15:48 Completed CBC [Complete Blood Count Auto Diff] Stat Lab 11/13/24 15:43 Completed Comprehensive Metabolic Panel Stat Lab 11/13/24 15:43 Completed Lipase Stat Lab 11/13/24 15:43 Completed Magnesium Stat Lab 11/13/24 15:43 Completed Trop I [Troponin I] Stat Lab 11/13/24 15:43 Completed Troponin I Q3H Lab 11/13/24 18:15 Completed ECG Data Tracing #1: Attestation: I reviewed this ECG and interpreted as documented below: ECG Narrative: Normal sinus rhythm. No ST elevation or depression. QTc normal at 368
[2024-11-13 16:05] LABS: Alanine Aminotransferase 15 U/L (12-78); Albumin Level 4.5 g/dl (3.5-5.0); Albumin/Globulin Ratio 1.7 (1.1-1.8); Alkaline Phosphatase 69 U/L (38-126); Anion Gap 13.6 mEq/L (5-15); Aspartate Amino Transferase 24 U/L (17-59); Bilirubin,Total 0.5 mg/dl (0.2-1.3); Blood Urea Nitrogen 17 mg/dl (9-20); Calcium 9.0 mg/dl (8.4-10.2); Carbon Dioxide 25 mmol/L (22.0-30.0); Chloride 105 mmol/L (98-107); Creatinine Clearance Estimated 78 mL/min (50-200); Creatinine,Serum 1.10 mg/dl (0.66-1.25); Estimated Glomerular Filt Rate 67 ml/min (>60); GFR (African American) 81 ML/MIN (>60); Globulin 2.6 g/dL (1.3-3.2); Glucose 98 mg/dl (74-100); Lipase 220 U/L (23-300); Magnesium 2.3 mg/dl (1.6-2.3); Potassium 4.6 mmoL/L (3.5-5.1); Sodium 139 mmol/L (136-145); Total Protein,Serum 7.1 g/dl (6.3-8.2)
[2024-11-13 16:31] VITALS: BP 148/84; PULSE 69; RESP 18; O2SAT 95
[2024-11-13 16:43] LABS: Troponin I < 0.01 ng/ml (0.00-0.034)
[2024-11-13 17:00] VITALS: BP 148/82; RESP 18
[2024-11-13 17:30] VITALS: BP 145/86; PULSE 54; RESP 19; O2SAT 95
[2024-11-13 18:49] LABS: Troponin I < 0.01 ng/ml (0.00-0.034)
[2024-11-13 19:05] VITALS: BP 145/86; PULSE 60; RESP 19; TEMP 36.7; O2SAT 96
== END 2024-11-13 19:10 | disposition home or self-care (01) ==
PROVIDERS: Nurse Practitioner; Emergency Provider Student in an Organized Health Care Education/Training Program; PCP Family Medicine
DX: R07.9 Chest pain, unspecified (principal); M79.602 Pain in left arm; F17.210 Nicotine dependence, cigarettes, uncomplicated
CPT/HCPCS: 71045; 80053; 83690; 83735; 84484; 85025; 93005; 96374; 96375; 99285; J1308; J2270; J2405